=== PATIENT | female | born 2000 | race Caucasian/White ===

== ENCOUNTER 2021-12-07 06:41 | Emergency (ER) | payer OTHER ==
[~2021-12-07] VITALS: Ht 167.6 cm; Wt 68.0 kg
[2021-12-07 06:53] VITALS: BP 128/97
[2021-12-07] MEDS ORDERED: TRANEXAMIC ACID 1,000 MG/10 ML TP ONE (08:00)
[2021-12-07] MEDS ORDERED: T3 PO (10:04)
[2021-12-07] MEDS ORDERED: AMOX-494 MT (10:04)
== END 2021-12-07 10:26 | disposition home or self-care (01) ==
LOC: ER 06:41
DX: K91.840 Postprocedural hemorrhage of a digestive system organ or structure following a digestive system procedure (principal); K08.89 Other specified disorders of teeth and supporting structures; F32.9 Major depressive disorder, single episode, unspecified; Z98.890 Other specified postprocedural states
CPT/HCPCS: 81025; 99283